=== PATIENT | female | born 1975 | race Caucasian/White ===

== ENCOUNTER → 2017-07-13 | Outpatient (CLI) | payer BC ==
[~2017-07-13] MED LIST: PERC5TAB12 PO
--- NOTE | 2017-07-13 17:10 | REP ---
Digital diagnostic bilateral mammography with CAD and focused left breast sonography: History: Lump 2 o'clock in the left breast. No comparison imaging. Mammographic findings: Routine views of both breasts are obtained. A skin marker is affixed to the skin in the left breast at the site of the palpable lump projecting in the upper outer quadrant. Diagnostic magnified focal spot views of the left breast are also obtained. The breast parenchyma is heterogeneously dense in a pattern which inhibits the sensitivity of mammography. No mass lesion is visible. No architectural distortion or suspicious microcalcifications are seen. No worrisome skin change is appreciated. Normal appearing lymph nodes are visible in each axilla. Sonographic findings: Focused left breast sonography is performed. At 1 o'clock at the level of the palpable lump there is a 2.4 x 1.3 x 1.9 cm cyst with thin septation. Adjacent to this there is a 0.4 cm cyst. No mass lesion is seen. No other sonographic finding. Impression: BIRADS category II benign breast imaging. 2.4 cm benign cyst seen in the left breast at the site of the palpable lump by ultrasound. Clinical follow-up is advised. This mammogram was interpreted with the aid of an FDA-approved computer-aided detection system. The patient states she/he had a clinical breast exam in June 2016. The patient letter being requested is M2 dense. Signed by Iván Yoo MD 07/13/2017 08:01 P
== END ==
LOC: M RAD 15:37
PROVIDERS: ATTEND Obstetrics & Gynecology
DX: N63.20 Unspecified lump in the left breast, unspecified quadrant (principal)
CPT/HCPCS: 76642; G0204

== ENCOUNTER → 2017-09-23 | Outpatient (REF) | payer BC | LOC: M LAB REF 13:32 | PROVIDERS: ATTEND Obstetrics & Gynecology | DX: R30.0 Dysuria (principal) ==

== ENCOUNTER 2020-08-03 22:55 | Emergency (ER) | payer BC ==
[~2020-08-03] VITALS: Ht 160 cm; Wt 61.4 kg
--- NOTE | 2020-08-03 23:33 | REPVR ---
PROCEDURE INFORMATION: Exam: CT Head Without Contrast Exam date and time: 08/03/2020 11:14 PM Age: 45 years old Clinical indication: Weakness, facial; Additional info: Neuro deficits TECHNIQUE: Imaging protocol: Computed tomography of the head without contrast. Radiation optimization: All CT scans at this facility use at least one of these dose optimization techniques: automated exposure control; mA and/or kV adjustment per patient size (includes targeted exams where dose is matched to clinical indication); or iterative reconstruction. COMPARISON: No relevant prior studies available. FINDINGS: Brain: Normal. No hemorrhage. Unremarkable white matter. No mass effect. Cerebral ventricles: No ventriculomegaly. Bones/joints: Unremarkable. No acute fracture. Paranasal sinuses: Visualized sinuses are unremarkable. No fluid levels. Mastoid air cells: Visualized mastoid air cells are well aerated. Soft tissues: Unremarkable. IMPRESSION: No acute intracranial abnormality. Electronically signed by: Leigh Webber On 08/03/2020 23:32:48 PM
[2020-08-03] MEDS ORDERED: KETOROLAC 30 MG/ML 1ML VIAL IV ONE (23:45)
[2020-08-03] MEDS ORDERED: NS 1,000 ML IV ONE (23:45)
[2020-08-03] MEDS ORDERED: diphenhydrAMINE 50MG/ML VIAL (J1200) IV ONE (23:45)
[2020-08-03] MEDS ORDERED: METOCLOPRAMIDE INJ 10MG/2ML VIAL (J2765 PER 1) IV ONE (23:45)
[2020-08-04 02:24] VITALS: BP 137/86
== END 2020-08-04 02:26 | disposition home or self-care (01) ==
LOC: M ED 22:55
DX: G43.909 Migraine, unspecified, not intractable, without status migrainosus (principal)
CPT/HCPCS: 70450; 96361; 96374; 96375; 99284; J1200; J1885; J2765

== ENCOUNTER → 2021-06-18 | Outpatient (REF) | payer BC | LOC: M SFHCWAGY 10:07 | PROVIDERS: ATTEND Obstetrics & Gynecology | DX: Z12.4 Encounter for screening for malignant neoplasm of cervix (principal) ==

== ENCOUNTER → 2021-07-04 | Outpatient (CLI) | payer BC ==
--- NOTE | 2021-07-04 12:33 | REP ---
INDICATION: [place] DIAG MAMMO/R BREAST LUMP. COMPARISON: Screening mammogram, 07/13/2017. TECHNIQUE: Digital screening (2D) mammographies E was performed bilaterally in the CC and MLO orientations. Additionally, breast tomosynthesis (3D mammography) was performed bilaterally in the CC and MLO orientations. Additionally, 2D spot compression images were obtained of the right breast in the CC, true lateral, and MLO orientations. FINDINGS: The Volpara volumetric breast density pattern is C, the breasts are heterogeneously dense, which may obscure small masses. There is a radiopaque triangle marking the location of a palpable abnormality in the right breast. There is no mammographic correlate to the palpable abnormality in the right breast. Right breast ultrasound: There are no cystic or solid masses corresponding to the palpable abnormality in the right breast.. IMPRESSION: BIRADS/ACR : Category 1: Negative. This patient's Tyrer-Cuzick lifetime breast cancer risk assessment score is 18.4%. This mammogram was interpreted with the aid of an FDA-approved computer-aided detection system. The patient states she has not had a clinical breast exam in more than 1 year. The patient letter being requested is M1. RECOMMENDATION: Repeat screening mammography recommended 1 year (for women over 40). <Electronically signed by Mynor Sam > 07/04/21 [id number]
--- NOTE | 2021-07-04 12:35 | REP ---
INDICATION: Palpable lump. COMPARISON: Bilateral mammogram, same day. TECHNIQUE: Ultrasound evaluation of the right breast in the area of the palpable abnormality was performed. FINDINGS: There is no mammographic correlate to the palpable abnormality in the right breast. Right breast ultrasound: There are no cystic or solid masses corresponding to the palpable abnormality in the right breast.. IMPRESSION: There is no ultrasound abnormality corresponding to the palpable abnormality in the right breast. BI-RADS category 1: Negative. <Electronically signed by Mynor Sam > 07/04/21 [id number]
== END ==
LOC: M WHC 09:01
PROVIDERS: ATTEND Physician Assistant Medical
DX: N63.10 Unspecified lump in the right breast, unspecified quadrant (principal)
CPT/HCPCS: 76642; 77066; G0279

== ENCOUNTER 2022-10-01 21:40 | Emergency (ER) | payer BC ==
[~2022-10-01] VITALS: Ht 160 cm; Wt 67.5 kg
[2022-10-01 23:07] LABS: BASO % 0.4 % (0.0-1.0); EOS # 0.2 10^3/uL (0.0-0.5); EOS % 2.8 % (0.0-3.0); HEMATOCRIT 39.5 % (36.0-47.0); HEMOGLOBIN 13.1 g/dl (12.0-15.5); LYMPH # 1.4 10^3/uL (1.5-5.0); LYMPH % 18.3 % (24.0-44.0); MEAN CORPUSCULAR HEMOGLOBIN 30.3 pg (27.0-33.0); MEAN CORPUSCULAR HGB CONC 33.2 g/dl (32.0-36.5); MEAN CORPUSCULAR VOLUME 91.2 fl (80.0-96.0); MONO # 0.7 10^3/uL (0.0-0.8); MONO % 9.2 % (2.0-8.0); NEUTROPHILS # 5.3 10^3/uL (1.5-8.5); PLATELET COUNT, AUTOMATED 275 10^3/uL (150-450); RED BLOOD COUNT 4.33 10^6/uL (4.00-5.40); WHITE BLOOD COUNT 7.6 10^3/uL (4.0-10.0)
[2022-10-01 23:34] LABS: LIPASE 28 U/L (12-53)
[2022-10-01 23:36] LABS: ALBUMIN 3.9 G/DL (3.2-5.2); ALKALINE PHOSPHATASE 75 U/L (46-116); ALT/SGPT 21 U/L (7.0-40); AST/SGOT 20 U/L (<34); BILIRUBIN,DIRECT 0.1 MG/DL (<0.4); BILIRUBIN,TOTAL 0.4 MG/DL (0.3-1.2); BLOOD UREA NITROGEN 19 MG/DL (9-23); CALCIUM LEVEL 8.8 MG/DL (8.5-10.1); CARBON DIOXIDE LEVEL 29 MMOL/L (20-31); CHLORIDE LEVEL 102 MMOL/L (98-107); CREATININE FOR GFR 0.64 MG/DL (0.55-1.30); GLOMERULAR FILTRATION RATE > 60.0 (>58); GLUCOSE, FASTING 99 MG/DL (60-100); POTASSIUM SERUM 3.8 MMOL/L (3.5-5.1); SODIUM LEVEL 138 MMOL/L (136-145); TOTAL PROTEIN 6.6 G/DL (5.7-8.2)
[2022-10-02 00:05] LABS: HCG, SERUM QUALITATIVE NEGATIVE (NEGATIVE)
[2022-10-02] MEDS ORDERED: KETOROLAC 30 MG/ML 1ML VIAL IV ONE (04:20)
[2022-10-02] MEDS ORDERED: ONDANSETRON 4MG 2ML VIAL IV ONE (04:20)
[2022-10-02] MEDS ORDERED: ISOVUE-370 76% 100ML VIAL As Ordered ONE ×2 (04:26→04:39)
[2022-10-02 06:22] VITALS: BP 119/68
[2022-10-02] MEDS ORDERED: DICY10CA13 PO (06:22)
[2022-10-02] MEDS ORDERED: ONDA4TAB6 PO (06:22)
== END 2022-10-02 07:04 | disposition home or self-care (01) ==
LOC: M ED 21:40
DX: R10.9 Unspecified abdominal pain (principal); I10 Essential (primary) hypertension; F10.10 Alcohol abuse, uncomplicated; Z79.83 Long term (current) use of bisphosphonates; Z79.891 Long term (current) use of opiate analgesic
CPT/HCPCS: 74177; 80048; 80076; 83690; 84703; 85025; 96374; 99283; J1885; J2405

== ENCOUNTER → 2023-02-18 | Outpatient (REF) | payer BC ==
[~2023-02-18] MED LIST changes: +DICY10CA13 PO; +ONDA4TAB6 PO
== END ==
LOC: M SFHCWAGY 10:18
PROVIDERS: ATTEND Obstetrics & Gynecology
DX: Z12.4 Encounter for screening for malignant neoplasm of cervix (principal)
CPT/HCPCS: 87624; G0123

== ENCOUNTER 2023-09-21 23:52 | Emergency (ER) | payer BC ==
[~2023-09-21] VITALS: Ht 160 cm; Wt 65.9 kg
[~2023-09-21 23:52] MED LIST changes: +DICY-61 PO; -DICY10CA13 PO
[2023-09-22 00:33] LABS: BASO % 0.5 % (0.0-1.0); EOS # 0.1 10^3/uL (0.0-0.5); HEMATOCRIT 40.2 % (36.0-47.0); HEMOGLOBIN 13.7 g/dl (12.0-15.5); LYMPH # 1.6 10^3/uL (1.5-5.0); LYMPH % 18.6 % (24.0-44.0); MEAN CORPUSCULAR HEMOGLOBIN 30.9 pg (27.0-33.0); MEAN CORPUSCULAR HGB CONC 34.1 g/dl (32.0-36.5); MEAN CORPUSCULAR VOLUME 90.5 fl (80.0-96.0); MONO # 0.7 10^3/uL (0.0-0.8); MONO % 7.5 % (2.0-8.0); NEUTROPHILS # 6.3 10^3/uL (1.5-8.5); NEUTROPHILS % 72.1 % (36.0-66.0); PLATELET COUNT, AUTOMATED 287 10^3/uL (150-450); RED BLOOD COUNT 4.44 10^6/uL (4.00-5.40); WHITE BLOOD COUNT 8.8 10^3/uL (4.0-10.0)
[2023-09-22 00:53] LABS: BLOOD UREA NITROGEN 10 MG/DL (9-23); CALCIUM LEVEL 9.1 MG/DL (8.5-10.1); CARBON DIOXIDE LEVEL 27 MMOL/L (20-31); CHLORIDE LEVEL 105 MMOL/L (98-107); CK-MB VALUE MASS < 1.0 NG/ML (<3.6); CPK CREATINE PHOSPHOKINASE 89 U/L (34-145); CREATININE FOR GFR 0.61 MG/DL (0.55-1.30); GLOMERULAR FILTRATION RATE > 60.0 (>58); GLUCOSE, FASTING 126 MG/DL (60-100); MB/CK RELATIVE INDEX 1.12 (< OR =4); POTASSIUM SERUM 3.5 MMOL/L (3.5-5.1); SODIUM LEVEL 141 MMOL/L (136-145)
[2023-09-22 01:41] LABS: CK-MB VALUE MASS < 1.0 NG/ML (<3.6)
[2023-09-22 01:43] LABS: CPK CREATINE PHOSPHOKINASE 83 U/L (34-145)
[2023-09-22 02:31] VITALS: BP 136/86; TEMP 98.8; O2SAT 98
== END 2023-09-22 02:33 | disposition home or self-care (01) ==
LOC: M ED 23:52
DX: I10 Essential (primary) hypertension (principal); R07.9 Chest pain, unspecified; K58.9 Irritable bowel syndrome, unspecified; Z79.83 Long term (current) use of bisphosphonates; Z79.899 Other long term (current) drug therapy

== ENCOUNTER → 2023-10-13 | Outpatient (CLI) | payer BC | LOC: M RAD 08:43 | PROVIDERS: ATTEND Family Medicine | DX: I10 Essential (primary) hypertension (principal) ==

== ENCOUNTER → 2024-05-02 | Outpatient (CLI) | payer BC ==
[~2024-05-02] MED LIST changes: +ONDA-282 PO; -ONDA4TAB6 PO
== END ==
LOC: M WHC 13:12
PROVIDERS: ATTEND Obstetrics & Gynecology
DX: R92.8 Other abnormal and inconclusive findings on diagnostic imaging of breast (principal)
CPT/HCPCS: 77066; G0279

== ENCOUNTER → 2024-05-02 | Outpatient (REF) | payer BC | LOC: M PLALAB 13:59 | PROVIDERS: ATTEND Obstetrics & Gynecology | DX: Z12.4 Encounter for screening for malignant neoplasm of cervix (principal); R87.610 Atypical squamous cells of undetermined significance on cytologic smear of cervix (ASC-US) ==

== ENCOUNTER → 2025-07-10 | Outpatient (CLI) | payer BC | LOC: M WHC 10:42 | PROVIDERS: ATTEND Obstetrics & Gynecology | DX: Z01.419 Encounter for gynecological examination (general) (routine) without abnormal findings (principal); Z12.31 Encounter for screening mammogram for malignant neoplasm of breast; R92.333 Mammographic heterogeneous density, bilateral breasts; Z79.899 Other long term (current) drug therapy; Z97.5 Presence of (intrauterine) contraceptive device ==

== ENCOUNTER → 2025-07-10 | Outpatient (REF) | payer BC | LOC: M SFHCWAGY 13:13 | PROVIDERS: ATTEND Obstetrics & Gynecology | DX: Z12.4 Encounter for screening for malignant neoplasm of cervix (principal) ==

== ENCOUNTER → 2025-07-18 | Outpatient (REF) | payer BC | LOC: M LAB REF 12:14 | PROVIDERS: ATTEND Nurse Practitioner Adult Health | DX: N39.0 Urinary tract infection, site not specified (principal) ==

== ENCOUNTER → 2025-09-01 | Outpatient (CLI) | payer BC ==
[~2025-09-01] MED LIST changes: +E-Z-GAS II EFFERVESCENT PACKET (SODIUM BICARB./CITRIC ACID/SIMETHICONE) As Ordered ONE; +E-Z-HD 98% w/w 340 GM SUSP BTL As Ordered ONE; +E-Z-PAQUE 96% w/w SUSP 176 GM BTL As Ordered ONE
== END ==
LOC: M RAD 09:18
PROVIDERS: ATTEND Family Medicine
DX: K21.9 Gastro-esophageal reflux disease without esophagitis (principal)